=== PATIENT | male | born 1990 | race Caucasian/White ===

== ENCOUNTER 2016-08-01 13:07 | Emergency (ER) | payer MEDICAID ==
[~2016-08-01] VITALS: Ht 172.7 cm; Wt 86.0 kg
[2016-08-01] MEDS ORDERED: FAMOTIDINE 20MG/2ML VIAL IV NR (14:00)
[2016-08-01] MEDS ORDERED: ONDANSETRON HCL 4MG/2ML VIAL IV NR (14:00)
[2016-08-01] MEDS ORDERED: MORPHINE SULFATE 4 MG/ML CPJ (NOT FOR IM USE) IV NR (14:00)
[2016-08-01 14:08] LABS: CLARITY URINE CLEAR (CLEAR); COLOR URINE YELLOW (YELLOW); GLUCOSE URINE NEGATIVE (NEGATIVE); KETONES URINE 1+ (NEGATIVE); LEUKOCYTE ESTERASE URINE NEGATIVE (NEGATIVE); NITRITE URINE NEGATIVE (NEGATIVE); OCCULT BLOOD URINE NEGATIVE (NEGATIVE); PH URINE >=9.0 (4.5-8.0); PROTEIN URINE TRACE (NEGATIVE); UROBILINOGEN URINE 0.2 E.U./dL (0.2-1.0)
[2016-08-01 14:12] LABS: BASOPHILS % 0.4 % (0.0-2.0); EOSINOPHILS % 0.3 % (0.0-5.0); HEMATOCRIT. 44.4 % (42.0-52.0); LYMPHOCYTES % 20.1 % (20.0-50.0); MEAN CORPUSCULAR HEMOGLOBIN 26.9 pg (28.0-32.0); MEAN CORPUSCULAR VOLUME 79.6 fL (80.0-94.0); MEAN PLATELET VOLUME 9.7 fl (7.4-10.4); MONOCYTES % 6.2 % (2.0-8.0); PLATELET 193 x1000/uL (130-400); RED BLOOD CELL COUNT 5.58 mill/uL (4.7-6.1); RED CELL DISTRIBUTION WIDTH 13.9 % (11.6-14.6)
[2016-08-01 14:20] LABS: PARTIAL THROMBOPLASTIN TIME 26.1 sec (24.0-34.0); PROTHROMBIN TIME 10.9 sec
[2016-08-01 14:23] LABS: CARBON DIOXIDE 28 mEq/L (21-32); CHLORIDE 101 mEq/L (98-107)
[2016-08-01 14:39] VITALS: BP 125/72
[2016-08-01] MEDS ORDERED: MORPHINE SULFATE 4 MG/ML CPJ (NOT FOR IM USE) IV ONE (16:45)
== END 2016-08-01 17:17 | disposition home or self-care (01) ==
LOC: ER 13:38
DX: K29.70 Gastritis, unspecified, without bleeding (principal); E87.6 Hypokalemia; F12.10 Cannabis abuse, uncomplicated
CPT/HCPCS: 80053; 81001; 83690; 85025; 85610; 85730; 96374; 96375; 99284; J2270; J2405; J3490; Z7610; 36415

== ENCOUNTER 2020-03-30 19:40 | Emergency (ER) | payer MEDICAID ==
[~2020-03-30] VITALS: Ht 175.3 cm; Wt 73.0 kg
[2020-03-30] MEDS ORDERED: DICYCLOMINE 10 MG/5 ML ORAL SYR PO STA (20:29)
[2020-03-30] MEDS ORDERED: MAGNESIUM/ALUMINUM HYDROXIDE/SIMETHICONE 30ML UDC PO STA (20:29)
[2020-03-30] MEDS ORDERED: VISCOUS LIDOCAINE 2% 15 ML UDC PO STA (20:29)
[2020-03-30 21:02] LABS: BASOPHILS % 0.2 % (0.0-2.0); EOSINOPHILS % 0.1 % (0.0-5.0); HEMATOCRIT. 44.4 % (42.0-52.0); HEMOGLOBIN. 14.2 g/dL (14.0-18.0); LYMPHOCYTES % 9.9 % (20.0-50.0); MEAN CORPUSCULAR HEMOGLOBIN 26.6 pg (28.0-32.0); MEAN CORPUSCULAR VOLUME 82.9 fL (80.0-94.0); MEAN PLATELET VOLUME 9.2 fl (7.4-10.4); MONOCYTES % 4.9 % (2.0-8.0); NEUTROPHILS % 84.9 % (40.0-76.0); PLATELET 194 x1000/uL (130-400); RED BLOOD CELL COUNT 5.36 mill/uL (4.7-6.1)
[2020-03-30 21:08] LABS: CHLORIDE 104 mEq/L (98-107)
[2020-03-30 21:10] LABS: INR 1.1; PROTHROMBIN TIME 11.5 sec (9.6-11.0)
[2020-03-30] MEDS ORDERED: MORPHINE SULFATE 4 MG/ML CPJ (NOT FOR IM USE) IV STA (21:41)
[2020-03-30] MEDS ORDERED: ONDANSETRON HCL 4MG/2ML INJ IV STA (21:41)
[2020-03-30] MEDS ORDERED: OMEP40CA12 MT (22:48)
[2020-03-30 22:51] VITALS: BP 125/60
== END 2020-03-30 23:16 | disposition home or self-care (01) ==
LOC: ER 19:40
DX: R10.33 Periumbilical pain (principal)
CPT/HCPCS: 36415; 74176; 80053; 83690; 85025; 85610; 96374; 99284; J2270